=== PATIENT | female | born 1975 | race Caucasian/White ===

== ENCOUNTER 2024-01-19 17:17 | Emergency (ER) | payer OTHER, SELFPAY ==
[2024-01-19 17:23] VITALS: BP 138/92
[2024-01-19 17:59] LABS: % Basophils 1.1 % (0-2); % Immature Granulocytes 0.1 % (0-0.5); % Lymphocytes 30.8 % (20.5-51.1); % Monocytes 7.9 % (1.7-9.3); % Neutrophils 57.1 % (42.2-75.2); Absolute Basophils 0.1 10^3/uL (0-0.2); Absolute Eosinophils 0.2 10^3/uL (0-0.7); Absolute Lymphocytes 2.3 10^3/uL (1.2-3.4); Absolute Monocytes 0.6 10^3/uL (0.1-0.6); Absolute Neutrophils 4.2 10^3/uL (1.4-6.5); Hematocrit 36.1 % (37.0-47.0); Hemoglobin 11.9 g/dL (12.0-16.0); Mean Corpuscular Volume 84.9 fL (81.0-99.0); Nucleated Red Blood Cells % 0 %; Platelet Count 344 10^3/uL (130-400); Red Blood Cell Count 4.25 10^6/uL (4.20-5.40); Red Cell Dist. Width 13.6 % (11.5-14.5); White Blood Cell Count 7.4 10^3/uL (4.8-10.8)
[2024-01-19 18:09] LABS: ALT (SGPT) 13 U/L (0-35); AST (SGOT) 19 U/L (14-36); Albumin 4.2 g/dl (3.5-5.0); Alkaline Phosphatase 74 U/L (38-126); Blood Urea Nitrogen 8 mg/dl (7-17); Calcium 9.1 mg/dl (8.4-10.2); Carbon Dioxide 26 mmol/L (22-30); Chloride 106 mmol/L (98-107); Glucose 102 mg/dl (70-99); Potassium 4.2 mmol/L (3.5-5.1); Sodium 135 mmol/L (135-145); Total Bilirubin 0.5 mg/dl (0.2-1.3); Total Protein 6.9 g/dl (6.3-8.2); eGFR > 60.00
--- NOTE | 2024-01-19 19:39 | ED.GENMED ---
History of Present Illness
General
Chief Complaint: Visual Problem
Source: patient
Exam Limitations: none
Time Seen by Provider: 01/19/24 19:38
Nursing documentation reviewed up to this point in time: agreed with
Travel History
Have you had any contact with someone who has COVID-19?: No
Do you have any symptoms of coronavirus? Fever > 100 degrees, chills, cough, shortness of breath, sore throat, loss of taste or smell, muscle aches, or headache?: No
History of Present Illness
History of Present Illness:
48-year-old female with history of Chiari malformation with leak which was repaired, asthma, POTS, GERD, gastroparesis, anxiety/depression presents stating eye doctor at [facility] earlier today and was told her 'peripheral vision had
changes.' He then called her neurosurgeon at [place] Dr. Black and he spoke with Ana Rausch the neuro PHONE SCREENER who told her to come here for CT scan and as long as that is normal she can simply follow-up with her scheduled appointment next week.
Pt states that she has had black spots in the vision of her left eye and sometimes her vision is fuzzy in that eye. She states she gets intermittent numbness and tingling in her left arm and leg past few days. She states her head feels 'swollen
like a rubber band around it' No recent head injury. She has had these symptoms in the past but not for a long time.
Denies headache but has pain behind her eyes. Denies n/v.
Past History
Past History
ED Past Medical History: Asthma, GERD (Achalasia), Other and Other (Chronic migraines and intermittent blurry vision she states as result of Chiari malformation.)
ED Past Surgical History: Cholecystectomy, Gynecological (Uterine ablation) and Other (Goes for esophageal dilatation about every 2 months that Trevon, Chiari malformation repair at [facility] '; pyloroplasty)
Social History
Tobacco: Non-smoker
Alcohol: None
Drug: None
Personal:
Living: with family
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
Family History
Family History: Diabetes and CAD (both parents alive)
Review of Systems
Review of Systems
Allergies reviewed?: Yes
All Other Systems: ROS reviewed and negative except as documented in HPI and ROS
Constitutional: Denies fever or fatigue
Respiratory: Denies trouble breathing
Cardiac: Denies chest pain
ABD/GI: Denies abdominal pain, nausea or vomiting
: Denies dysuria
Musculoskeletal: Reports neck pain (chronic)
Skin: Reports no symptoms
Neurological: Reports weakness (left arm and leg with intermittent tingling, has had similar symptoms in the past); Denies dizzy or numbness
Phy Exam
Physical Exam
Physical Exam:
GENERAL: No acute distress. A&Ox3.
CONSTITUTIONAL: Afebrile.
EYES: PERRL, conjunctivae normal, EOMs intact, visual ruffin intact
Neck: Supple
ENMT: moist mucus membranes, Pharynx nl, TMs normal
RESPIRATORY: Regular respirations, nonlabored, lungs clear.
CARDIOVASCULAR: Regular rate and rhythm, no murmurs, no rubs.
GI: Soft, nontender, normal BS
MUSCULOSKELETAL: Moves with ease. Well perfused.
SKIN: Warm, dry, pink
PSYCH: Normal mood and affect. Well kept, interactive and appropriate
NEUROLOGIC: Awake, alert and oriented. Speech clear. Strength 5/5 both UE's and RLE, 4/5 LLE. No upper extremity drift. Left lower extremity drift. Finger to nose intact. Sensation to touch equal throughout. Ambulates well with steady gait.
Course
Orders/Labs/Results
Orders:
Orders
01/19/24 17:31
EKG [Electrocardiogram (*1)] Urgent
Reason for Study: Fatigue / Weakness
01/19/24 17:32
EKG- Treatment ONCE
01/19/24 17:40
CBC/With Diff [Complete Blood Count/With Diff] Urgent
CMP [Comprehensive Metabolic Panel] Urgent
01/19/24 19:38
CT Head W/o Iv Contrast Urgent
Comment:
Reason For Exam: visual changes
01/19/24 20:10
Visual Acuity- Treatment ONCE
Abnormal Lab Results
01/19/24
17:40
Hgb 11.9 L g/dL
(12.0-16.0)
Hct 36.1 L %
(37.0-47.0)
MPV 11.0 H fL
(7.4-10.4)
Glucose 102 H mg/dl
(70-99)
01/19/24 17:40
01/19/24 17:40
Vital Signs
Initial and Last Documented VS:
Initial Vital Signs
Temp Pulse Resp BP Pulse Ox
98.7 F 80 18 138/92 100
01/19/24 17:23 01/19/24 17:23 01/19/24 17:23 01/19/24 17:23 01/19/24 17:23
Last Documented Vital Signs
Temp Pulse Resp BP Pulse Ox
98.7 F 80 15 104/72 98
01/19/24 17:23 01/19/24 22:03 01/19/24 22:03 01/19/24 22:03 01/19/24 22:03
MDM/Problems Addressed
Differential Diagnosis Includes:
migraine, CVA, TIA, brain tumor, brain bleed
MDM/Problems Addressed:
48-year-old female with history of Chiari malformation with leak which was repaired, asthma, POTS, GERD, gastroparesis, anxiety/depression presents stating eye doctor at [facility] earlier today and was told her 'peripheral vision had
changes.' He then called her neurosurgeon at [place] Dr. Black and he spoke with Ana Rausch the neuro PHONE SCREENER who told her to come here for CT scan and as long as that is normal she can simply follow-up with her scheduled appointment next week.
Pt states that she has had black spots in the vision of her left eye and sometimes her vision is fuzzy in that eye. She states she gets intermittent numbness and tingling in her left arm and leg past few days. She states her head feels 'swollen
like a rubber band around it' No recent head injury. She has had these symptoms in the past but not for a long time.
Denies headache but has pain behind her eyes. Denies n/v.
Pleasant, NAD
Mild weakness left arm and left leg. Ambulates well with steady gait.
01/19/2024 2149 PM
CBC with no clinically significant abnormalities
CMP normal
Head CT radiology report read, no evidence of acute intracranial abnormality.
Patient reassured of no acute finding, she is comfortable going home. She has an appointment with her neurologist next week.
*Critical Care Note
Total Time (30-74mins, 75-104mins- exclusive of procedures): Not Applicable
ED Attending Note
-
Portions of this chart may have been created with voice recognition software.� Occasional wrong word or��sound alike� substitutions may have occurred due to the inherent limitations of voice recognition software.
Discharge Plan
Departure
Patient Disposition: Home (Routine Discharge)
Date of Disposition: 01/19/24
Time of Disposition: 21:52
Patient with high blood pressure during this ER visit?: No
Condition: Good
Discharge Problem:
Abnormal vision, Tingling in extremities
Instructions: Paresthesia (DC)
Prescriptions:
No Action
esomeprazole magnesium [Nexium] 40 MG capsule,delayed release(DR/EC)
40 mg PO BID
famotidine 40 mg Tablet
40 mg PO BID
baclofen 10 mg Tablet
10 mg PO TID
montelukast [Singulair] 10 mg Tablet
10 mg PO HS
pregabalin [Lyrica] 20 mg/mL Solution
50 mg PO HS
Magnesium Chew
1 tab PO DAILY
Vitamin D Chew
2 tab PO DAILY
Referrals:
Karlie Prater MD [Family Provider] -
Activity Restrictions/Additional Instructions:
As we discussed, your head CAT scan shows nothing worrisome.
Your lab work is normal
Keep your appointment with your neurologist for next week
Interventions
Interventions:
*Risk Screen - Suicide Last Done: 01/19/24 17:23
*General Assessment Last Done: 01/19/24 17:23
*Neglect/Abuse Screening Last Done: 01/19/24 17:23
ED- Fall Risk Assessment Last Done: 01/19/24 19:49
*ED COVID-19 Vaccine History Last Done: 01/19/24 17:23
*Nursing Disposition Last Done: 01/19/24 22:03
ED- Neurological Assessment Last Done: 01/19/24 19:48
ED Swallowing Screen Last Done: 01/19/24 19:48
Discharge Date and Time
Discharge Date/Time: 01/19/24 22:03
[2024-01-19 19:52] VITALS: BP 103/75
[2024-01-19 19:54] VITALS: BMI 27.7
[2024-01-19 22:03] VITALS: BP 104/72
== END 2024-01-19 22:03 | disposition home or self-care (01) ==
LOC: EMR 17:17
PROVIDERS: Emergency Medicine; EMERGENCY PHYSICIAN Emergency Medicine; FAMILY PHYSICIAN Family Medicine
DX: H53.8 Other visual disturbances (principal); R20.2 Paresthesia of skin; R20.0 Anesthesia of skin; R53.1 Weakness; G93.5 Compression of brain; M54.2 Cervicalgia; J45.909 Unspecified asthma, uncomplicated; G90.A Postural orthostatic tachycardia syndrome [POTS]; K21.9 Gastro-esophageal reflux disease without esophagitis; K31.84 Gastroparesis; F41.9 Anxiety disorder, unspecified; F32.A Depression, unspecified; G89.29 Other chronic pain; Z90.49 Acquired absence of other specified parts of digestive tract; Z88.5 Allergy status to narcotic agent; Z88.0 Allergy status to penicillin; Z88.2 Allergy status to sulfonamides; Z88.8 Allergy status to other drugs, medicaments and biological substances; Z88.1 Allergy status to other antibiotic agents; Z91.040 Latex allergy status
CPT/HCPCS: 99284; 70450; 80053; 85025; 93005

== ENCOUNTER → 2024-04-07 07:25 | Outpatient (REF) | payer OTHER, SELFPAY | LOC: MRI 07:25 | PROVIDERS: ATTENDING PHYSICIAN Nurse Practitioner Family | DX: G95.9 Disease of spinal cord, unspecified (principal); Z98.1 Arthrodesis status | CPT/HCPCS: 72156; A9575 ==

== ENCOUNTER → 2024-04-22 07:24 | Outpatient (REF) | payer OTHER, SELFPAY | LOC: MRI 07:24 | PROVIDERS: ATTENDING PHYSICIAN Nurse Practitioner Family; FAMILY PHYSICIAN Family Medicine | DX: G93.5 Compression of brain (principal); H53.9 Unspecified visual disturbance | CPT/HCPCS: 70543; 70553; 71046; 74018; A9575 ==

== ENCOUNTER 2024-09-12 16:30 | Emergency (ER) | payer OTHER, SELFPAY ==
[2024-09-12 16:32] VITALS: BP 116/80
--- NOTE | 2024-09-12 16:38 | ED.GENMED ---
ED Provider Triage
<Henri Berumen PA-C - Last Filed: 09/12/24 16:50>
-
Patient seen by provider in Triage?: Seen in Triage
49-year-old female presents with abdominal pain radiating to the back since today. There is nausea. Also is some increased discomfort in her abdomen with deep breathing. She denies fevers. No urinary symptoms. She has a history of esophagectomy
as well as cholecystectomy. She follows with a motility specialist. No chest pain
Vital signs stable to triage. Will start workup with labs CBC CMP lipase as well as CT of the abdomen
Update: Called from CT, patient has IV dye allergy. Ordered pretreatment for the CAT scan
History of Present Illness
<Henri Berumen PA-C - Last Filed: 09/12/24 16:50>
General
Chief Complaint: Abdominal Pain
Time Seen by Provider: 09/12/24 21:13
<Delgado Beaulieu MD - Last Filed: 09/13/24 00:05>
General
Source: patient
Exam Limitations: none
Nursing documentation reviewed up to this point in time: agreed with
History of Present Illness
History of Present Illness:
49-year-old female with a past medical history of asthma, POTS, migraines, GERD, gastroparesis, multiple bowel resections who presents to the emergency room for evaluation of abdominal pain and back pain. Patient reports onset of symptoms earlier
this morning and they have been constant since that time. She reports a dull aching pain in the left flank radiates towards the left lower abdomen. No clear triggering or relieving factors noted. She reports associated increased urinary frequency
but she does admit she has been drinking a lot of water. Denies dysuria, hematuria, dark or cloudy urine. She also reports increased bloating. She has diarrhea but says that this is a chronic issue no worse than usual. She has had some nausea
denies vomiting. She denies any other complaints today but does note that yesterday while she was at [employer] she had episode of dizziness and lightheadedness that lasted for few minutes and resolved.
Past History
<Henri Berumen PA-C - Last Filed: 09/12/24 16:50>
Past History
ED Past Medical History: Asthma, GERD (Achalasia), Other and Other (Chronic migraines and intermittent blurry vision she states as result of Chiari malformation.)
ED Past Surgical History: Cholecystectomy, Gynecological (Uterine ablation) and Other (Goes for esophageal dilatation about every 2 months that Trevon, Chiari malformation repair at [facility] '19; pyloroplasty)
Social History
Tobacco: Non-smoker
Alcohol: None
Drug: None
Personal:
Living: with family
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
Family History
Family History: Diabetes and CAD (both parents alive)
Review of Systems
<Delgado Beaulieu MD - Last Filed: 09/13/24 00:05>
Review of Systems
All Other Systems: ROS reviewed and negative except as documented in HPI and ROS
Constitutional: Denies fever or chills
Respiratory: Denies cough or trouble breathing
Cardiac: Denies chest pain or palpitations
ABD/GI: Reports abdominal pain, nausea and diarrhea; Denies vomiting
: Reports frequency; Denies dysuria, flank pain or bleeding
Musculoskeletal: Reports back pain; Denies neck pain
Neurological: Reports dizzy; Denies headache
Phy Exam
<Delgado Beaulieu MD - Last Filed: 09/13/24 00:05>
Physical Exam
Physical Exam:
General: Awake, alert, oriented x3; no acute distress
Head: Normocephalic, atraumatic
Eyes: Conjunctiva normal, sclera anicteric
Throat: Airway intact, handling secretions
Neck: Trachea midline, supple without meningismus
Lungs: Clear to auscultation bilaterally, no wheezing, rales, rhonchi
Heart: Regular rate and rhythm, no murmurs, gallops, or rubs
Abd: Soft, non distended, focally tender left lower quadrant with no masses or peritoneal sign
Back: No CVA tenderness
Neuro: No gross deficit
Skin: no rash
Extremities: Warm and well-perfused
Scores
<Delgado Beaulieu MD - Last Filed: 09/13/24 00:05>
Heart Failure Risk
Heart Failure Risk Score: Not Applicable
Heart Score for Chest Pain Patients
STEMI patient?: Not applicable
Withdrawal Assessment of Alcohol
Withdrawal Assessment Completed?: Not applicable
Course
<Hneri Berumen PA-C - Last Filed: 09/12/24 16:50>
Orders/Labs/Results
Orders:
Orders
09/12/24 16:38
CT Abd/pelvis W Iv Cont Urgent
Comment:
Reason For Exam: abdominal pain
09/12/24 16:41
Complete Blood Count/With Diff Urgent
Comprehensive Metabolic Panel Urgent
HCG, Serum Qualitative Screen Urgent
Comment: ADDED
Lipase Urgent
09/12/24 16:47
Urinalysis Reflex To Culture Urgent
Date Specimen was Collected: 09/12/24
Time Specimen was Collected: 16:52
09/12/24 16:48
Diphenhydramine [Benadryl] 50 mg IV NOW STA
Hydrocortisone Sod Succinate [Solu-Cortef] 200 mg IV NOW STA
09/12/24 20:48
Diphenhydramine [Benadryl] 50 mg .ROUTE .STK-MED ONE
Hydrocortisone Sod Succinate [Solu-Cortef] 200 mg .ROUTE .STK-MED ONE
09/12/24 21:17
Test Result ONCE
09/12/24 22:01
Add On- LAB Urgent
Tests Added?: HCG qual
Abnormal Lab Results
09/12/24
16:41
Hgb 11.9 L g/dL
(12.0-16.0)
Hct 36.1 L %
(37.0-47.0)
MPV 11.1 H fL
(7.4-10.4)
Absolute Monos (auto) 0.8 H 10^3/uL
(0.1-0.6)
09/12/24 16:41
09/12/24 16:41
Vital Signs
Initial and Last Documented VS:
Initial Vital Signs
Temp Pulse Resp BP Pulse Ox
36.9 C 86 16 116/80 100
09/12/24 16:32 09/12/24 16:32 09/12/24 16:32 09/12/24 16:32 09/12/24 16:32
Last Documented Vital Signs
Temp Pulse Resp BP Pulse Ox
36.7 C 108 22 106/62 99
09/12/24 18:30 09/12/24 23:15 09/12/24 23:15 09/12/24 23:00 09/12/24 23:00
<Delgado Beaulieu MD - Last Filed: 09/13/24 00:05>
Orders/Labs/Results
Orders:
Orders
09/12/24 16:38
CT Abd/pelvis W Iv Cont Urgent
Comment:
Reason For Exam: abdominal pain
09/12/24 16:41
Complete Blood Count/With Diff Urgent
Comprehensive Metabolic Panel Urgent
HCG, Serum Qualitative Screen Urgent
Comment: ADDED
Lipase Urgent
09/12/24 16:47
Urinalysis Reflex To Culture Urgent
Date Specimen was Collected: 09/12/24
Time Specimen was Collected: 16:52
09/12/24 16:48
Diphenhydramine [Benadryl] 50 mg IV NOW STA
Hydrocortisone Sod Succinate [Solu-Cortef] 200 mg IV NOW STA
09/12/24 20:48
Diphenhydramine [Benadryl] 50 mg .ROUTE .STK-MED ONE
Hydrocortisone Sod Succinate [Solu-Cortef] 200 mg .ROUTE .STK-MED ONE
09/12/24 21:17
Test Result ONCE
09/12/24 22:01
Add On- LAB Urgent
Tests Added?: HCG qual
Abnormal Lab Results
09/12/24
16:41
Hgb 11.9 L g/dL
(12.0-16.0)
Hct 36.1 L %
(37.0-47.0)
MPV 11.1 H fL
(7.4-10.4)
Absolute Monos (auto) 0.8 H 10^3/uL
(0.1-0.6)
09/12/24 16:41
09/12/24 16:41
Vital Signs
Initial and Last Documented VS:
Initial Vital Signs
Temp Pulse Resp BP Pulse Ox
36.9 C 86 16 116/80 100
09/12/24 16:32 09/12/24 16:32 09/12/24 16:32 09/12/24 16:32 09/12/24 16:32
Last Documented Vital Signs
Temp Pulse Resp BP Pulse Ox
36.7 C 108 22 106/62 99
09/12/24 18:30 09/12/24 23:15 09/12/24 23:15 09/12/24 23:00 09/12/24 23:00
<Delgado Beaulieu MD - Last Filed: 09/13/24 00:05>
MDM/Problems Addressed
Differential Diagnosis Includes:
Diverticulitis, colitis, nephrolithiasis, UTI/pyelonephritis
MDM/Problems Addressed:
49-year-old female presents for evaluation of abdominal and flank pain associated with increased bloating also some increased urinary frequency over the past 24 hours. In addition to above had episode of what sounds like vasovagal symptoms while at
[employer] yesterday which have resolved. Vitals and exam as above. Place an IV check labs including CBC and a CMP, lipase. Check hCG. Check urinalysis. Check CT abdomen pelvis. Reassess after the above.
Labs reviewed: CBC unremarkable, CMP no clinically significant abnormalities. hCG negative. Urinalysis negative for infection. CT abdomen pelvis read by [facility]: Negative for any acute pathology. Possible she has mild colitis or early
diverticulitis�given she is focally tender will cover with antibiotics for possible developing diverticulitis. Stable for discharge, follow-up with PCP. She feels comfortable with this plan. Spoke about return precautions all questions answered.
<Delgado Beualieu MD - Last Filed: 09/13/24 00:05>
*Radiology
Radiology exam reviewed: radiology read reviewed
*Pulse Oximetry
Patient hypoxic: no
*Critical Care Note
Total Time (30-74mins, 75-104mins- exclusive of procedures): Not Applicable
Data Reviewed
Source: patient and records
ED Attending Note
<Henri Berumen PA-C - Last Filed: 09/12/24 16:50>
-
Portions of this chart may have been created with voice recognition software.� Occasional wrong word or��sound alike� substitutions may have occurred due to the inherent limitations of voice recognition software.
Discharge Plan
Departure
Patient with high blood pressure during this ER visit?: No
Discharge Problem:
Abdominal pain
Instructions: Diverticulitis (DC), Abdominal Pain
Prescriptions:
New
cefpodoxime 200 mg tablet
200 mg PO BID Qty: 14 0RF
metronidazole 500 mg tablet
500 mg PO TID Qty: 21 0RF
No Action
esomeprazole magnesium [Nexium] 40 MG capsule,delayed release(DR/EC)
40 mg PO BID
famotidine 40 mg Tablet
40 mg PO BID
baclofen 10 mg Tablet
10 mg PO TID
montelukast [Singulair] 10 mg Tablet
10 mg PO HS
pregabalin [Lyrica] 20 mg/mL Solution
50 mg PO HS
Magnesium Chew
1 tab PO DAILY
Vitamin D Chew
2 tab PO DAILY
Referrals:
Karlie Prater MD [Family Provider] - Follow up in 5-7 days
Activity Restrictions/Additional Instructions:
Thank you for visiting the Emergency Department at [facility].
1. Please schedule a follow up appointment as directed. Call first thing tomorrow morning to make an appointment.
2. If indicated, please take your medications as instructed and indicated on discharge paperwork.
3. If any of your symptoms do not improve, or persist, or become more severe within 6-12 hours, please return to the emergency department for further care.
4. Please return to the emergency department if you develop a headache, neck pain/stiffness, fever greater than 100.4F, chest pain, shortness of breath, persistent nausea, vomiting, slurred speech, difficulty walking, numbness/tingling, weakness,
signs of infection or any other symptoms that are worrisome to you.
Please call [phone] if you have any questions.
Interventions
Interventions:
*Risk Screen - Suicide Last Done: 09/12/24 16:37
*General Assessment Last Done: 09/12/24 16:37
*Neglect/Abuse Screening Last Done: 09/12/24 16:37
*ED COVID-19 Vaccine History Last Done: 09/12/24 16:37
QN-[id number]-[id number] Assessment Last Done: 09/12/24 22:32
Discharge Date and Time
Print Language: SINHALA
[2024-09-12 17:03] LABS: % Eosinophils 3.3 % (0-6); % Immature Granulocytes 0.1 % (0-0.5); % Lymphocytes 36.9 % (20.5-51.1); % Monocytes 9.3 % (1.7-9.3); % Neutrophils 49.4 % (42.2-75.2); Absolute Basophils 0.1 10^3/uL (0-0.2); Absolute Eosinophils 0.3 10^3/uL (0-0.7); Absolute Lymphocytes 3.2 10^3/uL (1.2-3.4); Absolute Monocytes 0.8 10^3/uL (0.1-0.6); Absolute Neutrophils 4.3 10^3/uL (1.4-6.5); Hematocrit 36.1 % (37.0-47.0); Hemoglobin 11.9 g/dL (12.0-16.0); Mean Corpuscular Hgb 27.7 pg (27.0-31.0); Mean Corpuscular Volume 84.1 fL (81.0-99.0); Mean Platelet Volume 11.1 fL (7.4-10.4); Nucleated Red Blood Cells % 0 %; Platelet Count 323 10^3/uL (130-400); Red Blood Cell Count 4.29 10^6/uL (4.20-5.40); Red Cell Dist. Width 13.6 % (11.5-14.5); White Blood Cell Count 8.8 10^3/uL (4.8-10.8)
[2024-09-12 17:06] LABS: Urine Albumin Negative (Neg - Trace); Urine Bilirubin Negative (Negative); Urine Character Clear (Clear); Urine Color Straw; Urine Glucose Negative (Negative); Urine Ketone Negative (Negative); Urine Leukocyte Negative (Negative); Urine Nitrite Negative (Negative); Urine Occult Blood Negative (Negative); Urine Specific Gravity 1.005 (<1.030); Urine Urobilinogen Negative (Neg - 1+)
[2024-09-12 17:12] LABS: ALT (SGPT) 19 U/L (0-35); AST (SGOT) 23 U/L (14-36); Albumin 4.6 g/dl (3.5-5.0); Alkaline Phosphatase 70 U/L (38-126); Blood Urea Nitrogen 10 mg/dl (7-17); Calcium 9.7 mg/dl (8.4-10.2); Carbon Dioxide 28 mmol/L (22-30); Chloride 100 mmol/L (98-107); Glucose 98 mg/dl (70-99); Lipase 84 U/L (23-300); Potassium 4.7 mmol/L (3.5-5.1); Sodium 138 mmol/L (135-145); Total Bilirubin 0.3 mg/dl (0.2-1.3); Total Protein 7.1 g/dl (6.3-8.2); eGFR > 60.00
[2024-09-12 18:30] VITALS: BP 120/76
[2024-09-12 21:25] VITALS: BP 115/83
[2024-09-12] MEDS: BENADRYL 50 MG IV (21:52)
[2024-09-12] MEDS: SOLU-CORTEF 200 MG IV (21:52)
[2024-09-12 22:51] LABS: HCG, Serum Qualitative Screen Negative
[2024-09-12 22:56] VITALS: BP 109/82
[2024-09-12 23:00] VITALS: BP 106/62
[2024-09-13] VITALS: BP 102/85
== END 2024-09-13 00:19 | disposition home or self-care (01) ==
LOC: EMR 16:30
PROVIDERS: Physician Assistant; EMERGENCY PHYSICIAN Emergency Medicine; FAMILY PHYSICIAN Family Medicine
DX: R10.9 Unspecified abdominal pain (principal); K21.9 Gastro-esophageal reflux disease without esophagitis
CPT/HCPCS: 99285; 96374; 96375; 74177; 80053; 81003; 83690; 84703; 85025; 93005; Q9967

== ENCOUNTER 2025-06-27 10:28 | Emergency (ER) | payer OTHER, SELFPAY ==
[2025-06-27 10:33] VITALS: BP 162/101
--- NOTE | 2025-06-27 11:11 | ED.GENMED ---
History of Present Illness
General
Chief Complaint: Chest Pain
Source: patient
Exam Limitations: none
Time Seen by Provider: 06/27/25 10:49
Nursing documentation reviewed up to this point in time: agreed with
History of Present Illness
History of Present Illness:
Patient is a 50-year-old female with history POTS, GERD presenting with multiple complaints today. Patient states that she started with her first estrogen patch, Climara as prescribed by her primary care yesterday. She states that shortly after
applying patch she developed a tightness sensation in her chest and felt mildly short of breath. She also had cramping in her left lower extremity.
She did remove patch after about 1 hour.
Patient states that symptoms persisted throughout yesterday afternoon/evening. She contacted her primary care provider for follow-up today who recommended she come to the emergency department to rule out a blood clot
By arrival to the emergency department�she still feels a tightness sensation in her mid chest and feels she is having difficulty taking a deep breath. She denies any pleuritic chest pain. No exertional component to chest tightness.
Of note�patient has been dealing with viral URI symptoms over the past few days including sore throat, chest congestion, cough with clear sputum. Her children are's sick with similar symptoms.
Patient states she did travel back from [place] via car about 1 month ago.
Patient does report she has chronic tachycardia secondary to POTS. She follows with cardiology. She is scheduled for a follow-up with her JOINT CLEANING MACHINE OPERATOR this
Past History
Past History
ED Past Medical History: Asthma, GERD (Achalasia), Other and Other (Chronic migraines and intermittent blurry vision she states as result of Chiari malformation.)
ED Past Surgical History: Cholecystectomy, Gynecological (Uterine ablation) and Other (Goes for esophageal dilatation about every 2 months that Trevon, Chiari malformation repair at [facility] '19; pyloroplasty)
Social History
Tobacco: Non-smoker
Alcohol: None
Drug: None
Personal:
Living: with family
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
Family History
Family History: Diabetes and CAD (both parents alive)
Review of Systems
Review of Systems
Allergies reviewed?: Yes
All Other Systems: ROS reviewed and negative except as documented in HPI and ROS
Phy Exam
Physical Exam
Physical Exam:
Vitals: Tachycardia, otherwise vital signs stable. Afebrile
General: Patient is well appearing, no acute distress. Nontoxic appearing.
Skin: Warm and dry, no rashes or lesions
Head: Normocephalic, atraumatic
Eyes: Sclera nonicteric. EOMs intact. No nystagmus.
Throat: Protecting airway
Neck: Normal ROM, no cervical spine tenderness, no meningismus
Cardiac: Tachycardic, normal rhythm, no murmurs. No reproducible chest wall tenderness. 2+ palpable radial pulses.
Pulm: Normal respiratory effort, no wheezes, rales, rhonchi heard on exam.
Abdomen: Abdomen soft and nontender
Extremities: No evidence of cyanosis or edema. Negative fina sign bilaterally. No erythema, warmth, or tenderness of LLE.
Neuro: AAOx3. CN II-XII intact. No focal neurologic deficits. Grossly intact.
Psychiatric: Normal affect.
Scores
Heart Score for Chest Pain Patients
STEMI patient?: No
History: Slightly or Non-Suspicious
ECG: Normal
Age: >45 - <65 years
Risk Factors: 1 or 2 Risk Factors
Troponin: </= Normal Limit
Heart Score for Chest Pain Patients: 2
Heart Score Risk: 2.5% MACE over next 6 weeks
Course
Orders/Labs/Results
Orders:
Orders
06/27/25 10:29
Electrocardiogram (*1) Urgent
Reason for Study: Chest Pain
EKG- Treatment ONCE
06/27/25 11:04
Periph Venous Lwr Ext Left US [US Periph Venous LOWER Ext LT] Urgent
Comment:
Reason For Exam: LLE pain, recent travel to [place]
06/27/25 11:05
Test Result ONCE
CR Chest - 2 Views Urgent
Comment:
Reason For Exam: SOB, chest pain
06/27/25 11:14
COVID-19 Antigen Urgent
Source: Nasal Swab
Complete Blood Count/With Diff Urgent
Comprehensive Metabolic Panel Urgent
D-Dimer Urgent
Free T4 Urgent
HCG, Serum Qualitative Screen Urgent
Manual Differential Urgent
TSH Reflex To Free T4 Urgent
Troponin I Urgent
Influenza A+B Rapid Molecular Urgent
ALLEGRA Source: Nasal Swab
Specimen Description:
06/27/25 14:15
Electrocardiogram (*1) Urgent
Reason for Study: Chest Pain
EKG- Treatment ONCE
Troponin I Urgent
Abnormal Lab Results
06/27/25
11:14
MCHC 32.4 L g/dL
(33.0-37.0)
MPV 11.1 H fL
(7.4-10.4)
Band Neutrophils 4 H %
(0-3)
Monocytes (Manual) 18 H %
(2-9)
Glucose 105 H mg/dl
(70-99)
Total Protein 8.6 H g/dl
(6.3-8.2)
Albumin 5.1 H g/dl
(3.5-5.0)
TSH (Reflex) 0.02 L uIU/ml
(0.47-4.68)
06/27/25 11:14
06/27/25 11:14
Vital Signs
Initial and Last Documented VS:
Initial Vital Signs
Temp Pulse Resp BP Pulse Ox
98.7 F 120 17 162/101 99
06/27/25 10:33 06/27/25 10:33 06/27/25 10:33 06/27/25 10:33 06/27/25 10:33
Last Documented Vital Signs
Temp Pulse Resp BP Pulse Ox
98.7 F 83 12 103/85 99
06/27/25 10:33 06/27/25 15:45 06/27/25 15:15 06/27/25 15:00 06/27/25 15:45
MDM/Problems Addressed
Differential Diagnosis Includes:
Not limited to: Viral illness, muscle strain/spasm, costochondritis, pleurisy, GERD, medication side effect, acute coronary syndrome, pulmonary embolism, etc.
MDM/Problems Addressed:
50-year-old female presenting with chest tightness and shortness of breath, which began after applying estrogen patch yesterday for the first time. No exertional or pleuritic component to symptoms. No fevers however patient is dealing with current
URI symptoms. Also with cramping in left lower leg intermittently. Patient tachycardic on arrival, otherwise stable vital signs. Patient does report history of chronic tachycardia secondary to POTS for which she follows with a recycle coordinator.
Differential broad. Will rule out acute cardiac/pulmonary emergencies in ED. Less likely related to topical patch however given timing of symptoms would be consideration.
ED plan: labs, serial troponins, D-dimer. Will check viral studies, chest x-ray, and ultrasound left lower extremity to rule out DVT.
Update: patient has remain remained stable in the emergency department. Her vital signs have normalized, including her heart rate without intervention. Labs unremarkable. Her d-dimer is undetectable and she has had two negative troponins and
non-ischemic EKGs. No evidence of DVT on ultrasound. No acute findings on chest x-ray.
At this point - very low suspicion for acute cardiac process. She remains well appearing. Possible bronchitis from URI. Feel stable for discharge home with supportive care at home including adequate hydration, and NSAIDS/Tylenol. Advised to avoid
further estrogen patches until seen by JOINT CLEANING MACHINE OPERATOR and follow up with primary care. Return precautions discussed. Patient comfortable with plan.
Chronic conditions affecting care:
POTS�tachycardia
Acute Exacerbation and/or Progression of Chronic Illness:
N/A
*Radiology
Radiology exam reviewed: preliminary read by ED provider (Chest x-ray reviewed by me-no acute abnormality) and radiology read reviewed
*Pulse Oximetry
SaO2: 99
Oxygen Mode of Delivery: Room air
Patient hypoxic: no
*EKG
Interpreted by ED Provider?: Yes
EKG Intrepretation Date: 06/27/25
Interpretation: abnormal
Comparison EKG: no changes
Heart Rate: 101
Rate: tachycardiac
Rhythm: sinus
Jones: normal axis
Interval: normal QT interval
QRS Pattern: normal QRS
Ischemia: no ischemia
*Mobile Phone Salesperson Interpretation
Rate: normal
Interpretation: normal
Heart Rate: 86
Rhythm: sinus
*Critical Care Note
Total Time (30-74mins, 75-104mins- exclusive of procedures): Not Applicable
ED Attending Note
-
Portions of this chart may have been created with voice recognition software.� Occasional wrong word or��sound alike� substitutions may have occurred due to the inherent limitations of voice recognition software.
Discharge Plan
Departure
Patient Disposition: Home (Routine Discharge)
Date of Disposition: 06/27/25
Time of Disposition: 15:40
Patient with high blood pressure during this ER visit?: Yes
Condition: Good
Covid-19: Negative COVID-19
Discharge Problem:
Chest pain, Viral syndrome, Cramps of left lower extremity
Instructions: Chest pain, Upper respiratory infection in adults - ED discharge instructions, BLOOD PRESSURE
Prescriptions:
No Action
esomeprazole magnesium [Nexium] 40 MG capsule,delayed release(DR/EC)
40 mg PO BID
famotidine 40 mg Tablet
40 mg PO BID
baclofen 10 mg Tablet
10 mg PO TID
montelukast [Singulair] 10 mg Tablet
10 mg PO HS
pregabalin [Lyrica] 20 mg/mL Solution
50 mg PO HS
Magnesium Chew
1 tab PO DAILY
Vitamin D Chew
2 tab PO DAILY
cefpodoxime 100 mg/5 mL suspension for reconstitution
200 mg PO BID 7 Days Qty: 140 0RF
Referrals:
Karlie Prater MD [Family Provider, Family Practice] - Follow up in 5-7 days
Activity Restrictions/Additional Instructions:
RETURN TO THE EMERGENCY DEPARTMENT WITH ANY CHEST PAIN, SHORTNESS OF BREATH/DIFFICULTY BREATHING, SEVERE BACK PAIN, NUMBNESS/TINGLING IN EXTREMITIES, PRODUCTIVE COUGH OR FEVERS, WORSENING CURRENT SYMPTOMS, OR ANY OTHER CONCERNS
- You came to the emergency department with concerns of the chest discomfort. Your chest x-ray, cardiac enzymes, and blood work showed no acute abnormalities. We are unsure the exact cause of your symptoms today however may be related to current
suspected viral illness
- Your ultrasound showed no evidence of a blood clot in your left lower leg.
- Please stay well-hydrated and take Tylenol/Motrin as needed for discomfort.
- I would avoid any further applications of estrogen patch until you are seen by your JOINT CLEANING MACHINE OPERATOR.
Monitor your symptoms closely and return to the emergency department with any acute worsening/new symptoms or any other concerns
Interventions
Interventions:
*Risk Screen - Suicide Last Done: 06/27/25 10:36
*General Assessment Last Done: 06/27/25 10:36
*Neglect/Abuse Screening Last Done: 06/27/25 10:36
*ED- Fall Risk Assessment Last Done: 06/27/25 11:16
*ED COVID-19 Vaccine History Last Done: 06/27/25 10:36
*Nursing Disposition Last Done: 06/27/25 15:55
ED- Cardiac Assessment Last Done: 06/27/25 11:16
Discharge Date and Time
Discharge Date/Time: 06/27/25 15:56
Print Language: PAP[place]
[2025-06-27 11:13] VITALS: BP 111/82
[2025-06-27 11:31] LABS: Hematocrit 40.1 % (37.0-47.0); Hemoglobin 13.0 g/dL (12.0-16.0); Mean Corp Hgb Conc. 32.4 g/dL (33.0-37.0); Mean Corpuscular Volume 83.2 fL (81.0-99.0); Platelet Count 312 10^3/uL (130-400); Red Cell Dist. Width 13.8 % (11.5-14.5)
[2025-06-27 11:43] LABS: COVID-19 Antigen Negative (Negative)
[2025-06-27 11:46] LABS: HCG, Serum Qualitative Screen Negative
[2025-06-27 11:48] LABS: ALT (SGPT) 18 U/L (0-35); AST (SGOT) 24 U/L (14-36); Albumin 5.1 g/dl (3.5-5.0); Alkaline Phosphatase 73 U/L (38-126); Blood Urea Nitrogen 14 mg/dl (7-17); Calcium 9.7 mg/dl (8.4-10.2); Carbon Dioxide 26 mmol/L (22-30); Chloride 104 mmol/L (98-107); Glucose 105 mg/dl (70-99); Potassium 4.1 mmol/L (3.5-5.1); Sodium 140 mmol/L (135-145); Total Protein 8.6 g/dl (6.3-8.2); eGFR > 60.00
[2025-06-27 11:49] LABS: Absolute Neutrophils -Man Diff 2.9 10^3/uL (1.4-6.5)
[2025-06-27 11:50] LABS: Normal RBC Morphology Yes; Platelets Checked Yes; Total Cells Counted 100
[2025-06-27 11:51] LABS: Troponin I < 0.012 ng/ml
[2025-06-27 11:59] LABS: D-Dimer < 0.27 ug/mlFEU (0.00-0.50)
[2025-06-27 12:10] VITALS: BP 108/78
[2025-06-27 13:00] VITALS: BP 99/74
[2025-06-27 14:00] VITALS: BP 105/71
[2025-06-27 14:47] LABS: Troponin I < 0.012 ng/ml
[2025-06-27 15:00] VITALS: BP 103/85
== END 2025-06-27 15:56 | disposition home or self-care (01) ==
LOC: EMR 10:28
PROVIDERS: Physician Assistant; EMERGENCY PHYSICIAN Emergency Medicine; FAMILY PHYSICIAN Family Medicine
DX: B34.9 Viral infection, unspecified (principal); R07.89 Other chest pain; M79.605 Pain in left leg; G90.A Postural orthostatic tachycardia syndrome [POTS]; J45.909 Unspecified asthma, uncomplicated; Z90.49 Acquired absence of other specified parts of digestive tract; Z11.52 Encounter for screening for COVID-19; Z79.818 Long term (current) use of other agents affecting estrogen receptors and estrogen levels
CPT/HCPCS: 99285; 71046; 80053; 84439; 84443; 84484; 84703; 85025; 85379; 87502; 87811; 93005; 93971

== ENCOUNTER 2025-09-12 15:28 | Emergency (ER) | payer OTHER, SELFPAY ==
[2025-09-12 15:36] VITALS: BP 156/85
[2025-09-12 15:54] VITALS: BP 108/66
[2025-09-12 16:00] VITALS: BP 112/73
[2025-09-12 16:12] VITALS: BMI 28.2
--- NOTE | 2025-09-12 16:12 | ED.GENMED ---
History of Present Illness
General
Chief Complaint: Chest Pain
Source: patient
Exam Limitations: none
Time Seen by Provider: 09/12/25 16:06
Nursing documentation reviewed up to this point in time: agreed with
History of Present Illness
History of Present Illness:
Patient is a 50-year-old female past medical history of GERD POTS, chronic migraines/neck pain Chiari malformation with repair in 2019, cervical fusion (2017) presents to the ER for evaluation. Pt reports for the past 2 weeks intermittently she has
had numbness and tingling in her left arm and has had some discomfort in her left armpit and chest area. She reports the chest has been off and on. Not associate with shortness of breath. She recently has had some left breast pain and saw her
family doctor 2 weeks ago she is scheduled for mammogram and ultrasound of the left breast in the next 2 weeks. She denies any swelling or redness to the breast. She denies any nipple discharge.
She denies any actual left arm weakness. She does have history of cervical fusion and has some chronic neck pain. She does have an outside resaw tailer for her POTS as well as a neurologist for her Chiari malformation and cervical fusion.
Patient does not smoke no cardiac history she is not on any type of estrogen. She previously discontinued her estrogen patch in May.
No history PE DVT no lower extremity swelling. No leg pain. No recent travel.
Past History
Past History
ED Past Medical History: Asthma, GERD (Achalasia), Other and Other (Chronic migraines and intermittent blurry vision she states as result of Chiari malformation.)
ED Past Surgical History: Cholecystectomy, Gynecological (Uterine ablation) and Other (Goes for esophageal dilatation about every 2 months that Trevon, Chiari malformation repair at [facility] '19; pyloroplasty)
Social History
Tobacco: Non-smoker
Alcohol: None
Drug: None
Personal:
Living: with family
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
Family History
Family History: Diabetes and CAD (both parents alive)
Phy Exam
General Physical Exam
General Presentation: no apparent distress
General age: appears stated age
General Skin: warm and dry
General Habitus: normal
General Mental: alert
General Hydration: appears well hydrated
Cardiovascular Exam
Cardiovascular Exam: regular rate/rhythm, no murmur and normal peripheral pulses
Pulmonary Exam
Pulmonary Exam: lungs clear and no respiratory distress
Neurological Exam
Neurological Exam: alert and oriented x3
Musculoskeletal Exam
Musculoskeletal Exam: full ROM
Skin Exam
Skin Exam: normal color and warm/dry
Psychiatric Exam
Psychiatric Exam: normal mood/affect
Scores
Heart Score for Chest Pain Patients
STEMI patient?: Not applicable
Course
Orders/Labs/Results
Orders:
Orders
09/12/25 15:37
Electrocardiogram (*1) Urgent
Reason for Study: Chest Pain
EKG- Treatment ONCE
09/12/25 16:08
Pulse Ox/spot Check [RESP] Urgent
Quantity: 1
Special Instructions: ON ROOM AIR
09/12/25 16:10
Complete Blood Count/With Diff Urgent
Comprehensive Metabolic Panel Urgent
Troponin I Urgent
09/12/25 16:37
Chest [CR Chest - 2 Views ] Urgent
Comment:
Reason For Exam: cp
Abnormal Lab Results
09/12/25
16:10
Hgb 11.3 L g/dL
(12.0-16.0)
Hct 35.0 L %
(37.0-47.0)
MCH 26.2 L pg
(27.0-31.0)
MCHC 32.3 L g/dL
(33.0-37.0)
MPV 11.1 H fL
(7.4-10.4)
Absolute Monos (auto) 0.8 H 10^3/uL
(0.1-0.6)
09/12/25 16:10
09/12/25 16:10
Vital Signs
Initial and Last Documented VS:
Initial Vital Signs
Temp Pulse Resp BP Pulse Ox
98.8 F 109 17 156/85 97
09/12/25 15:36 09/12/25 15:36 09/12/25 15:36 09/12/25 15:36 09/12/25 15:36
Last Documented Vital Signs
Temp Pulse Resp BP Pulse Ox
98.8 F 71 17 112/73 97
09/12/25 15:36 09/12/25 16:45 09/12/25 16:45 09/12/25 16:00 09/12/25 16:14
MDM/Problems Addressed
Differential Diagnosis Includes:
Not limited to paresthesias radiculopathy pinched nerve muscular pain, less likely ACS
MDM/Problems Addressed:
As documented patient is a 50-year-old female with history of Chiari malformation, POTS, chronic neck pain presents to the ER for evaluation. Patient had some paresthesias to her left arm and armpit and intermittent chest discomfort for the past
week. She had no associated shortness of breath. She presents awake alert no acute distress no focal neurodeficits. She denies any new neck pain or trauma. Normal sensation to bilateral upper extremities no acute weakness. No acute findings on
EKG normal cardiac troponin chest x-ray negative. She does not smoke. She is not on any type of estrogen. And again not shortness of breath symptoms not consistent with PE.
Patient has remained asymptomatic here in the ER.
She is followed by resaw tailer for POTS as well as neurology for Chiari malformation. Will DC with outpatient follow-up with her private cardiology and neurology groups. However stable for discharge home.
Chronic conditions affecting care:
POTS, Chiari malformation, chronic neck pain.
*Radiology
Radiology exam reviewed: radiology read reviewed
*Pulse Oximetry
SaO2: 97
Oxygen Mode of Delivery: Room air
Patient hypoxic: no
*EKG
Interpreted by ED Provider?: Yes
Heart Rate: 80
Rate: normal
Ischemia: no ischemia
*Critical Care Note
Total Time (30-74mins, 75-104mins- exclusive of procedures): Not Applicable
Data Reviewed
Review of Other/Old Records Reveals: Other (Previous ER record)
ED Attending Note
-
Portions of this chart may have been created with voice recognition software.� Occasional wrong word or��sound alike� substitutions may have occurred due to the inherent limitations of voice recognition software.
Discharge Plan
Departure
Patient Disposition: Home (Routine Discharge)
Date of Disposition: 09/12/25
Time of Disposition: 19:00
Patient with high blood pressure during this ER visit?: Yes
Condition: Fair
Covid-19: Not Applicable
Discharge Problem:
Chest pain, paresthesias
Instructions: Chest Pain NON-DHP Telecom Analyst Follow Up, BLOOD PRESSURE
Prescriptions:
No Action
esomeprazole magnesium [Nexium] 40 MG capsule,delayed release(DR/EC)
40 mg PO BID
famotidine 40 mg Tablet
40 mg PO BID
baclofen 10 mg Tablet
10 mg PO TID
montelukast [Singulair] 10 mg Tablet
10 mg PO HS
pregabalin [Lyrica] 20 mg/mL Solution
50 mg PO HS
Magnesium Chew
1 tab PO DAILY
Vitamin D Chew
2 tab PO DAILY
cefpodoxime 100 mg/5 mL suspension for reconstitution
200 mg PO BID 7 Days Qty: 140 0RF
Referrals:
Aliya Garcias MD [Family Provider, Pediatrics]
Activity Restrictions/Additional Instructions:
As discussed please follow-up with your resaw tailer as well as neurologist for further evaluation of chest pain and left arm numbness. Your cardiac blood work was unremarkable and your chest x-ray was negative. There was no acute change on your
EKG. Return if any worsening of symptoms.
Interventions
Interventions:
*Risk Screen - Suicide Last Done: 09/12/25 15:38
*General Assessment Last Done: 09/12/25 15:38
*Neglect/Abuse Screening Last Done: 09/12/25 15:38
*ED COVID-19 Vaccine History Last Done: 09/12/25 15:38
*ED Influenza Vaccine History Last Done: 09/12/25 15:38
ED- Cardiac Assessment Last Done: 09/12/25 16:12
Discharge Date and Time
Print Language: MEXICAN
[2025-09-12 16:17] LABS: Hematocrit 35.0 % (37.0-47.0); Hemoglobin 11.3 g/dL (12.0-16.0); Mean Corp Hgb Conc. 32.3 g/dL (33.0-37.0); Mean Corpuscular Volume 81.2 fL (81.0-99.0); Nucleated Red Blood Cells % 0 %; Platelet Count 356 10^3/uL (130-400); Red Cell Dist. Width 13.7 % (11.5-14.5)
[2025-09-12 16:36] LABS: ALT (SGPT) 16 U/L (0-35); AST (SGOT) 23 U/L (14-36); Albumin 4.1 g/dl (3.5-5.0); Alkaline Phosphatase 51 U/L (38-126); Blood Urea Nitrogen 8 mg/dl (7-17); Calcium 9.0 mg/dl (8.4-10.2); Carbon Dioxide 26 mmol/L (22-30); Chloride 105 mmol/L (98-107); Estimated Creatinine Clearance 104 ml/min; Glucose 98 mg/dl (70-99); Potassium 4.2 mmol/L (3.5-5.1); Sodium 136 mmol/L (135-145); Total Protein 7.1 g/dl (6.3-8.2); eGFR > 60.00
[2025-09-12 16:49] LABS: Troponin I < 0.012 ng/ml
[2025-09-12 18:44] VITALS: BP 103/60
[2025-09-12 19:00] VITALS: BP 105/65
== END 2025-09-12 19:30 | disposition home or self-care (01) ==
LOC: EMR 15:28
PROVIDERS: Nurse Practitioner; EMERGENCY PHYSICIAN Emergency Medicine; FAMILY PHYSICIAN Pediatrics
DX: R07.9 Chest pain, unspecified (principal); R20.2 Paresthesia of skin; G90.A Postural orthostatic tachycardia syndrome [POTS]; J45.909 Unspecified asthma, uncomplicated; Z98.1 Arthrodesis status; G89.29 Other chronic pain; M54.2 Cervicalgia
CPT/HCPCS: 99285; 71046; 80053; 84484; 85025; 93005